=== PATIENT | female | born 1950 | race African-American/Black ===

== ENCOUNTER 2019-04-01 21:23 | Emergency (ER) | payer OTHER, MEDICAID ==
[~2019-04-01] VITALS: Ht 157.5 cm; Wt 84.5 kg
[2019-04-01 21:54] VITALS: Ht 157.5 cm; Wt 84.5 kg
[2019-04-02 00:22] VITALS: BP 143/77
== END 2019-04-02 00:22 | disposition home or self-care (01) ==
LOC: ED 21:23
DX: N61.0 Mastitis without abscess (principal); I10 Essential (primary) hypertension; Z85.3 Personal history of malignant neoplasm of breast; Z98.890 Other specified postprocedural states; Z88.1 Allergy status to other antibiotic agents
CPT/HCPCS: J2270